=== PATIENT | male | born 1985 | race African-American/Black ===

== ENCOUNTER 2021-04-11 14:26 | Emergency (ER) | payer MEDICAID, OTHER ==
[~2021-04-11] VITALS: Ht 180.3 cm; Wt 77.0 kg
[2021-04-11 15:57] VITALS: BP 131/67
== END 2021-04-11 16:03 | disposition home or self-care (01) ==
LOC: ER 14:26
DX: Z48.02 Encounter for removal of sutures (principal); R22.0 Localized swelling, mass and lump, head
CPT/HCPCS: 99281; Z7610

== ENCOUNTER 2021-04-11 16:12 | Emergency (ER) | payer MEDICAID ==
[~2021-04-11] VITALS: Ht 180.3 cm; Wt 77.0 kg
[2021-04-11 16:20] VITALS: BP 130/74
== END 2021-04-11 17:01 | disposition home or self-care (01) ==
LOC: ER 16:12
DX: R22.0 Localized swelling, mass and lump, head (principal); Z98.890 Other specified postprocedural states
CPT/HCPCS: 99281